=== PATIENT | female | born 1930 | race African-American/Black ===

== ENCOUNTER → 2017-03-06 | Outpatient (CLI) | payer MEDICARE ==
--- NOTE | ~2017-03-06 | US77 ---
[facility] A Service of [facility] RADIOLOGY TEXT RESULTS PATIENT: TERELL SUTHERLAND LOCATION: [facility] : [birth year] UNIT #: [id number] AGE: [address]: NOMRA PARK SEX: F ORDER DR: [id number] [place] [id number] O MR#: [id number] Acc #: [id number] NAME: TERELL SUTHERLAND : 1930 SEX: F STUDY DATE/TIME: 03/06/2017 11:26 UNIT: [facility] ROOM: STUDY DESCRIPTION: US Kidney Bilateral Complete Attending Physician: Norma Park M.D. Referring Physician: Norma Park M.D. Ordering Physician: Physician Non-Staff Primary Care Physician: Norma Park M.D. MEDICAL IMAGING REPORT This report is preliminary unless electronic signature is present. EXAM Bilateral renal ultrasound DATE 03/06/2017 HISTORY Acute renal failure. Pathological lesion on kidney. Patient states kidney disease/infection. COMPARISON There is no prior imaging study at this institution for comparison. Location of prior imaging study not supplied on physician history or patient history. FINDINGS The right kidney measures approximately 7.7 x 4.7 x 5.2 cm. The left kidney measures approximately 9.7 x 4.4 x 4.7 cm. Each kidney maintains normal cortical thickness but appears slightly echogenic, suggesting changes of chronic medical renal disease. A cyst is seen within the right upper renal pole measuring approximately 3.1 x 3.1 x 4.3 cm. No suspicious solid renal mass lesion is identified. Urinary bladder appears unremarkable. No shadowing stone or hydronephrosis is seen within either kidney. IMPRESSION 1. 4.2 cm cyst in the right upper renal pole. 2. No solid renal mass lesion is identified on today's examination. Of note, there are no prior imaging studies at this institution, and there is no documentation of outside imaging studies provided. Please correlate with any known outside history or outside imaging studies. [facility] A Service of [facility] RADIOLOGY TEXT RESULTS PATIENT: TERELL SUTHERLAND LOCATION: [facility] : [birth year] UNIT #: [id number] AGE: [address]: NORMA PARK SEX: F ORDER DR: 3. Mild increased bilateral renal cortical echotexture suggesting changes of chronic medical renal disease. Mild bilateral renal atrophy. 1. Dictated by... Monica Dockery M.D. THIS IS AN ELECTRONICALLY VERIFIED REPORT Monica Dockery M.D. at 03/07/2017 2:22 PM DOLORES/emily TD: 03/06/2017 17:44 JOB #: [id number] MEDICAL IMAGING REPORT Page 1 of 1
== END | disposition home or self-care (01) ==
LOC: SGUS 10:29
DX: N17.8 Other acute kidney failure (principal); N28.1 Cyst of kidney, acquired; N26.1 Atrophy of kidney (terminal)
CPT/HCPCS: 76775

== ENCOUNTER → 2017-03-06 | Outpatient (CLI) | payer MEDICARE, OTHER ==
[2017-03-06 11:14] LABS: BASOPHIL# 0.1 X10e3 (0-0.3); BASOPHIL% 0.9 % (0-2.5); EOSINOPHIL# 0.3 X10e3 (0-0.7); EOSINOPHIL% 3.4 % (0.0-7.0); HEMATOCRIT 37.4 % (35.0-45.0); HEMOGLOBIN 12.7 gm/dL (12.0-16.0); LYMPHOCYTE% 34.1 % (17.0-45.0); MEAN CELL VOLUME 86.7 FL (83-96); MEAN CORPUSCULAR HEMOGLOBIN 29.3 PG (28-34); MEAN CORPUSCULAR HGB CONC 33.9 g/dL (30-36); MEAN PLATELET VOLUME 8.2 FL (6.5-11.5); MONOCYTE# 0.9 X10e3 (0-1.0); MONOCYTE% 10.6 % (3.0-12.0); NEUTROPHIL# 4.5 X10e3 (1.5-7.1); PLATELET COUNT 347 X10e3 (140-420); RED BLOOD COUNT 4.31 X10e (3.90-5.30); RED CELL DISTRIBUTION WIDTH 14.5 % (11.0-15.5); WHITE BLOOD COUNT 8.8 X10e3 (4.0-10.5)
[2017-03-06 11:15] LABS: DIFF IND NO
[2017-03-06 11:30] LABS: BUN/CREATININE RATIO 15.21; CREATININE SERUM 2.3 mg/dL (0.6-1.4); GLOM FILT RATE Estimated 21.4 mL/min (>60); POTASSIUM 4.4 mmol/L (3.5-5.1)
[2017-03-06 12:03] LABS: MICRO INDICATED? YES; URINE APPEARANCE CLEAR; URINE BILIRUBIN NEG (NEG); URINE BLOOD 1+ (NEG); URINE COLOR YELLOW; URINE GLUCOSE NEG (NORM); URINE KETONE NEG (NEG); URINE LEUKOCYTE ESTERASE NEG (NEG); URINE NITRATE NEG (NEG); URINE PH 5.5 (5-8); URINE PROTEIN 2+ (NEG); URINE SPECIFIC GRAVITY 1.015 (1.003-1.035); URINE UROBILINOGEN 0.2 MG/DL (NORM)
[2017-03-06 12:12] LABS: URINE BACTERIA NEG (NEG); URINE RBC 0-2 /[HPF] (0-2); URINE SQUAMOUS EPITHELIAL CELL FEW /[HPF]
[2017-03-06 15:09] LABS: CREATININE,RANDOM URINE 54 mg/dL; TOTAL PROTEIN,RANDOM URINE 181 mg/dl (<10)
== END | disposition home or self-care (01) ==
LOC: SLAB 10:37
PROVIDERS: Internal Medicine Nephrology
DX: N18.4 Chronic kidney disease, stage 4 (severe) (principal); R80.8 Other proteinuria
CPT/HCPCS: 36415; 80048; 81003; 82306; 82570; 84156; 85025